=== PATIENT | male | born 1945 | race Caucasian/White ===

== ENCOUNTER 2021-02-05 07:23 | Day surgery (SDC) | payer MEDICARE, OTHER ==
[~2021-02-05] VITALS: Ht 180.3 cm; Wt 74.0 kg
[~2021-02-05 07:23] MED LIST: AMLO10; CLOP75; LISI20; NASACORT10.8 ML; PANT20
[2021-02-05] MEDS ORDERED: HYDCHL25 (07:51)
[2021-02-05] MEDS ORDERED: PRAV20 (07:52)
== END 2021-02-05 09:38 | disposition home or self-care (01) ==
LOC: ORSCSDS 07:23
PROVIDERS: Internal Medicine Gastroenterology
PROC: 0DBH8ZX Excision of Cecum, Via Natural or Artificial Opening Endoscopic, Diagnostic (ICD-10-PCS; principal; 2021-02-05 08:45)
DX: Z12.11 Encounter for screening for malignant neoplasm of colon (principal); Z86.010 Personal history of colon polyps; D12.0 Benign neoplasm of cecum; K57.30 Diverticulosis of large intestine without perforation or abscess without bleeding; K64.8 Other hemorrhoids; K21.9 Gastro-esophageal reflux disease without esophagitis; I10 Essential (primary) hypertension; E78.5 Hyperlipidemia, unspecified; Z86.73 Personal history of transient ischemic attack (TIA), and cerebral infarction without residual deficits; Z87.891 Personal history of nicotine dependence; F41.9 Anxiety disorder, unspecified; Z79.899 Other long term (current) drug therapy
CPT/HCPCS: 88305; J0461; J2405; J2704; J7120

== ENCOUNTER → 2021-06-25 | Outpatient (CLI) | payer MEDICARE, OTHER ==
[~2021-06-25] MED LIST changes: +HYDCHL25; +PRAV20
== END ==
LOC: LAB SHORT 12:26 → LAB 12:26
DX: D48.5 Neoplasm of uncertain behavior of skin (principal); C44.219 Basal cell carcinoma of skin of left ear and external auricular canal; C44.319 Basal cell carcinoma of skin of other parts of face; Z88.1 Allergy status to other antibiotic agents; Z88.8 Allergy status to other drugs, medicaments and biological substances
CPT/HCPCS: 88305

== ENCOUNTER → 2021-07-10 | Outpatient (CLI) | payer MEDICARE, OTHER | LOC: LAB 12:08 → LAB SHORT 12:08 | DX: C44.41 Basal cell carcinoma of skin of scalp and neck (principal); Z88.1 Allergy status to other antibiotic agents; Z88.6 Allergy status to analgesic agent | CPT/HCPCS: 88305 ==

== ENCOUNTER 2021-10-21 06:17 | Day surgery (SDC) | payer MEDICARE, OTHER ==
[~2021-10-21] VITALS: Ht 180.3 cm; Wt 74.0 kg
[2021-10-21] MEDS ORDERED: NEURONTIN300 MG PO (06:45)
== END 2021-10-21 09:00 | disposition home or self-care (01) ==
LOC: ORSCSDS 06:17
PROVIDERS: Orthopaedic Surgery
PROC: 01S40ZZ Reposition Ulnar Nerve, Open Approach (ICD-10-PCS; principal; 2021-10-21 07:30)
PROC: 01N50ZZ Release Median Nerve, Open Approach (ICD-10-PCS; principal; 2021-10-21 07:30)
DX: G56.02 Carpal tunnel syndrome, left upper limb (principal); G56.22 Lesion of ulnar nerve, left upper limb; I10 Essential (primary) hypertension; E78.00 Pure hypercholesterolemia, unspecified; Z79.02 Long term (current) use of antithrombotics/antiplatelets; Z79.899 Other long term (current) drug therapy
CPT/HCPCS: J0690; J1100; J1885; J2250; J2405; J2704; J2795; J3010; J7120

== ENCOUNTER 2021-12-24 06:16 | Day surgery (SDC) | payer MEDICARE, OTHER ==
[~2021-12-24] VITALS: Ht 180.3 cm; Wt 71.9 kg
[~2021-12-24 06:16] MED LIST changes: +NEURONTIN300 MG PO
--- NOTE | 2021-12-24 09:23 | NUR ---
12/24/21 0923 Vince Meza PT STATED HE IS READY TO GO HOME. PAIN TOLERABLE AFTER PAIN MEDICATION ADMINISTERED
== END 2021-12-24 09:26 | disposition home or self-care (01) ==
LOC: ORSCSDS 06:16
PROVIDERS: Orthopaedic Surgery
PROC: 01N50ZZ Release Median Nerve, Open Approach (ICD-10-PCS; principal; 2021-12-24 07:30)
PROC: 01N40ZZ Release Ulnar Nerve, Open Approach (ICD-10-PCS; principal; 2021-12-24 07:30)
DX: G56.01 Carpal tunnel syndrome, right upper limb (principal); G56.21 Lesion of ulnar nerve, right upper limb; I10 Essential (primary) hypertension; Z86.73 Personal history of transient ischemic attack (TIA), and cerebral infarction without residual deficits; Z79.899 Other long term (current) drug therapy; Z79.01 Long term (current) use of anticoagulants; Z87.891 Personal history of nicotine dependence
CPT/HCPCS: A9270; J0690; J1100; J2250; J2405; J2704; J2795; J3010

== ENCOUNTER → 2022-08-05 | Outpatient (CLI) | payer MEDICARE, OTHER ==
[2022-08-05 09:44] LABS: Source, Urine Clean Catch
[2022-08-05 13:20] LABS: Red Blood Cells, Urine 0-2 /hpf (0-2)
[2022-08-05 13:21] LABS: Bacteria Not Seen /hpf; Squamous Epithelial Cells Not Seen /hpf (Few)
== END ==
LOC: LAB SHORT 09:43 → LAB 09:43
PROVIDERS: Registered Nurse
DX: R79.89 Other specified abnormal findings of blood chemistry (principal)
CPT/HCPCS: 81015

== ENCOUNTER 2024-10-11 12:13 | Emergency (ER) | payer MEDICARE, OTHER ==
[~2024-10-11] VITALS: Ht 175.3 cm; Wt 74.8 kg
[2024-10-11 12:53] LABS: BASOPHILS ABSOLUTE AUTO 0.02 K/mm3 (0.00-0.23); BASOPHILS PERCENT AUTO 0 % (0-2); EOSINOPHILS ABSOLUTE AUTO 0.05 K/mm3 (0.00-0.68); EOSINOPHILS PERCENT AUTO 1 % (0-6); Hematocrit 42.9 % (37.0-53.0); Hemoglobin 14.3 g/dL (13.5-17.5); IMMATURE GRAN ABSOLUTE AUTO 0.02 K/mm3 (0.00-0.10); IMMATURE GRAN PERCENT AUTO 0 % (0-1); LYMPHOCYTES ABSOLUTE AUTO 1.34 K/mm3 (0.84-5.20); LYMPHOCYTES PERCENT AUTO 21 % (21-46); MONOCYTES ABSOLUTE AUTO 0.56 K/mm3 (0.16-1.47); MONOCYTES PERCENT AUTO 9 % (4-13); Mean Corpuscular HGB 29.9 pg (26.0-34.0); Mean Corpuscular HGB Conc 33.3 g/dL (31.5-36.5); Mean Corpuscular Volume 90 fL (80-100); Mean Platelet Volume 10.1 fL (9.1-12.4); NEUTROPHILS ABSOLUTE AUTO 4.42 K/mm3 (1.96-9.15); NEUTROPHILS PERCENT AUTO 69 % (41-73); Platelet Count 219 K/mm3 (150-400); RDW Coefficient Variation 13.2 % (11.7-14.2); RDW Standard Deviation 43.4 fL (35.1-46.3); Red Blood Cell Count 4.78 M/mm3 (4.30-5.90); White Blood Cell Count 6.41 K/mm3 (4.00-11.30)
[2024-10-11] MEDS ORDERED: Acetaminophen 500 MG Tab PO ONE (13:25)
[2024-10-11 13:31] LABS: Albumin, Blood 3.7 g/dL (3.4-5.0); Albumin/Globulin Ratio 1.1 (0.8-1.8); Bilirubin, Total 1.2 mg/dL (0.1-1.0); Bun/Creatinine Ratio 20.4 (12.0-20.0); Calcium, Blood 9.3 mg/dL (8.5-10.1); Creatinine, Blood 0.98 mg/dL (0.60-1.20); Globulin, Blood 3.5 g/dL (2.2-4.0); Magnesium, Blood 2.3 mg/dL (1.6-2.4); Potassium, Blood 3.6 mmol/L (3.5-5.5); Total Protein, Blood 7.2 g/dL (6.4-8.2)
[2024-10-11] MEDS ORDERED: OXYC5 PO (15:22)
[2024-10-11 15:30] VITALS: BP 153/71
[2024-10-11] MEDS ORDERED: OxyCODONE HCL 5 MG TAB PO ONE (15:45)
== END 2024-10-11 16:21 | disposition home or self-care (01) ==
LOC: ER 12:13
PROVIDERS: Student in an Organized Health Care Education/Training Program
DX: R55 Syncope and collapse (principal); S62.112A Displaced fracture of triquetrum [cuneiform] bone, left wrist, initial encounter for closed fracture; S01.111A Laceration without foreign body of right eyelid and periocular area, initial encounter; S60.212A Contusion of left wrist, initial encounter; S05.11XA Contusion of eyeball and orbital tissues, right eye, initial encounter; I10 Essential (primary) hypertension; Z87.891 Personal history of nicotine dependence; W19.XXXA Unspecified fall, initial encounter; Z79.02 Long term (current) use of antithrombotics/antiplatelets; Z79.899 Other long term (current) drug therapy; Z88.6 Allergy status to analgesic agent; Z88.1 Allergy status to other antibiotic agents
CPT/HCPCS: 12011; 29125; 70450; 71046; 72125; 73110; 80053; 83735; 83880; 84484; 85025; 93005; 93010; 93242; 99284-25; A9270